=== PATIENT | female | born 1995 ===

== ENCOUNTER 2021-07-12 12:03 | Outpatient (CLI) | payer OTHER | END 2021-07-12 15:30 | disposition home or self-care (01) | LOC: PRENATAL 12:03 | PROVIDERS: ATTEND Obstetrics & Gynecology Maternal & Fetal Medicine | DX: O35.0XX1 Maternal care for (suspected) central nervous system malformation in fetus, fetus 1 (principal); O35.3XX1 Maternal care for (suspected) damage to fetus from viral disease in mother, fetus 1; O98.512 Other viral diseases complicating pregnancy, second trimester; Z36.89 Encounter for other specified antenatal screening; Z3A.25 25 weeks gestation of pregnancy ==

== ENCOUNTER 2021-10-08 03:04 | Inpatient (IN) | payer OTHER ==
[~2021-10-08] VITALS: Ht 157.5 cm; Wt 95.3 kg
[2021-10-08] MEDS ORDERED: PRENATAL CAPLE1 EAC1 PO (03:16)
== END 2021-10-11 17:20 | disposition home or self-care (01) | DRG 807 ==
LOC: OBS/DEL 03:04 → LDR 04:30 → OBS/DEL 04:30 → OB/GYN 04:30
PROVIDERS: ADMIT Obstetrics & Gynecology; ATTEND Obstetrics & Gynecology
PROC: 10E0XZZ Delivery of Products of Conception, External Approach (ICD-10-PCS; principal; 2021-10-08)
PROC: 0HQ9XZZ Repair Perineum Skin, External Approach (ICD-10-PCS; 2021-10-08)
PROC: 4A0HXFZ Measurement of Products of Conception, Cardiac Rhythm, External Approach (ICD-10-PCS; 2021-10-08)
PROC: 4A033R1 Measurement of Arterial Saturation, Peripheral, Percutaneous Approach (ICD-10-PCS; 2021-10-09)
DX: O60.14X0 Preterm labor third trimester with preterm delivery third trimester, not applicable or unspecified (principal); Z37.0 Single live birth; O42.013 Preterm premature rupture of membranes, onset of labor within 24 hours of rupture, third trimester; O70.0 First degree perineal laceration during delivery; Z3A.36 36 weeks gestation of pregnancy; Z20.822 Contact with and (suspected) exposure to COVID-19